=== PATIENT | female | born 1975 | race Caucasian/White ===

== ENCOUNTER 2017-04-27 16:47 | Inpatient (IN) | payer MEDICARE, MEDICAID ==
[~2017-04-27] VITALS: Ht 157.5 cm; Wt 62.5 kg
[2017-04-27] MEDS ORDERED: CITA10TA68 PO (16:51)
[2017-04-27] MEDS ORDERED: CLON1 PO (16:51)
[2017-04-27] MEDS ORDERED: LITH300C3 PO (16:51)
[2017-04-27 17:26] LABS: BASOPHILS % (AUTO) 0.9 % (0.0-2.0); EOSINOPHILS % (AUTO) 3.1 % (1.0-6.0); HEMATOCRIT 40.2 % (36-46); HEMOGLOBIN 13.8 g/dL (12.0-16.0); LYMPHOCYTES # (AUTO) 2.5 K/uL (1.0-4.8); LYMPHOCYTES % (AUTO) 33.8 % (22.0-44.0); MEAN CORPUSCULAR HEMOGLOBIN 29.8 pg (26.0-34.0); MEAN CORPUSCULAR HGB CONC 34.3 G/dL (31.0-37.0); MEAN CORPUSCULAR VOLUME 87 fL (80-100); MONOCYTES # (AUTO) 0.3 K/uL (0.1-1.0); MONOCYTES % (AUTO) 4.6 % (2.0-9.0); NEUTROPHILS # (AUTO) 4.2 K/uL (1.8-7.7); NEUTROPHILS % (AUTO) 57.6 % (40.0-70.0); PLATELET COUNT (AUTO) 385 K/uL (150-450); RED BLOOD CELL COUNT(AUTO) 4.62 MIL/uL (4.00-5.20); RED CELL DISTRIBUTION WIDTH 13.2 % (11.5-14.5); WHITE BLOOD COUNT (AUTO) 7.3 K/uL (4.5-11.0)
[2017-04-27 17:39] LABS: ANION GAP 8 mmol/L (8-16); CALCIUM, TOTAL 9.2 mg/dL (8.8-10.5); CARBON DIOXIDE 26 mmol/L (22-29); CHLORIDE 102 mmol/L (98-107); GLOMERULAR FILTR. RATE CALC > 60 mL/min (>60); POTASSIUM 3.5 mmol/L (3.5-5.1); SODIUM SERUM 136 mmol/L (136-145); UREA NITROGEN, BLOOD 13 mg/dL (7-18)
[2017-04-27 17:45] LABS: ALANINE AMINOTRANSFERASE 15 U/L (12-78); ALBUMIN 3.7 g/dL (3.4-5.0); ASPARTATE AMINOTRANSFERASE 16 U/L (15-37); BILIRUBIN,TOTAL 0.2 mg/dL (0.1-1.0); TOTAL PROTEIN, SERUM 7.8 g/dL (6.4-8.2)
[2017-04-27] MEDS ORDERED: HALOPERIDOL 5 MG TABLET PO PRN (18:00)
[2017-04-27] MEDS ORDERED: ZOLPIDEM TARTRATE 10 MG TABLET PO PRN (18:00)
[2017-04-27] MEDS: LORazepam 2 MG TABLET PO PRN (18:15)
[2017-04-27 18:40] LABS: LITHIUM 0.28 mmol/L (0.60-1.20)
[2017-04-27] MEDS ORDERED: PNEUMOCOCCAL VACCINE POLYVALENT 0.5 ML VIAL [PPSV23] IM ONE (22:30)
[2017-04-28 02:23] VITALS: BP 117/83
[2017-04-28] MEDS: LORazepam 2 MG TABLET PO PRN (02:24)
[2017-04-28 08:24] VITALS: BP 116/80
[2017-04-28] MEDS ORDERED: CLON.5 PO (09:17)
[2017-04-28] MEDS ORDERED: TRAZ-144 PO (09:17)
[2017-04-28] MEDS ORDERED: CITA20TA9 PO (09:17)
[2017-04-28] MEDS: CITALOPRAM HYDROBROMIDE 20 MG TABLET PO SCH (09:35)
[2017-04-28] MEDS: LITHIUM CARBONATE 300 MG CAPSULE PO SCH ×2 (09:35→16:40)
[2017-04-28] MEDS: ClonazePAM 0.5 MG TABLET PO SCH ×2 (12:44→16:40)
[2017-04-28] MEDS ORDERED: ACETAMINOPHEN 325 MG TABLET PO PRN (14:45)
[2017-04-28] MEDS ORDERED: IBUPROFEN 400 MG TABLET PO PRN (14:45)
[2017-04-28] MEDS ORDERED: *PATIENT'S OWN MED [ENTER DRUG, DOSE, FREQUENCY IN COMMENTS] CLINICAL ONE ×2 (16:00)
[2017-04-28 16:13] VITALS: BP 115/79
[2017-04-28] MEDS ORDERED: TraZODone HCL 50 MG TABLET PO SCH (21:00)
[2017-04-28] MEDS ORDERED: ZOLPIDEM TARTRATE 10 MG TABLET PO SCH (21:00)
[2017-04-28] MEDS ORDERED: SIMVASTATIN 10 MG TABLET PO SCH (21:00)
[2017-04-29 01:45] VITALS: BP 107/72
[2017-04-29] MEDS ORDERED: MARLISSA PO SCH (09:00)
[2017-04-29 09:08] VITALS: BP 117/77
[2017-04-29] MEDS: LITHIUM CARBONATE 300 MG CAPSULE PO SCH (09:08)
[2017-04-29] MEDS: CITALOPRAM HYDROBROMIDE 20 MG TABLET PO SCH (09:08)
[2017-04-29] MEDS: ClonazePAM 0.5 MG TABLET PO SCH ×2 (09:19→12:27)
[2017-04-29] MEDS ORDERED: LEVO1TAB58 PO (12:56)
[2017-04-29] MEDS ORDERED: SIMV-259 PO (12:56)
[2017-04-29] MEDS ORDERED: ZOLP10TA2 PO (13:25)
== END 2017-04-29 15:05 | disposition home or self-care (01) | DRG 885 ==
LOC: EMS 16:50 → B2X 19:00 → B2S 19:00 → B2X 04-28 20:11
PROVIDERS: ADMIT Psychiatry & Neurology Psychiatry; ATTEND Psychiatry & Neurology Psychiatry
PROC: 3E0234Z Introduction of Serum, Toxoid and Vaccine into Muscle, Percutaneous Approach (ICD-10-PCS; principal; 2017-04-27)
DX: F25.9 Schizoaffective disorder, unspecified (principal); R45.851 Suicidal ideations; E78.5 Hyperlipidemia, unspecified; F31.9 Bipolar disorder, unspecified; Z23 Encounter for immunization
CPT/HCPCS: 90471; 99285; G0480